=== PATIENT | male | born 1990 | race Two or more races ===

== ENCOUNTER 2020-10-14 13:06 | Outpatient (CLI) | payer BC | END 2020-10-14 13:07 | disposition home or self-care (01) | LOC: LAB 13:06 | PROVIDERS: ATTEND Urology | DX: N40.1 Benign prostatic hyperplasia with lower urinary tract symptoms (principal); N30.00 Acute cystitis without hematuria ==

== ENCOUNTER 2020-10-26 13:28 | Outpatient (CLI) | payer BC | END 2020-10-26 13:39 | disposition home or self-care (01) | LOC: SONOGRAMA 13:28 → MAMO-SONO 13:30 → SONOGRAMA 13:39 | PROVIDERS: ATTEND Urology | DX: N40.1 Benign prostatic hyperplasia with lower urinary tract symptoms (principal); R33.8 Other retention of urine ==